=== PATIENT | male | born 1955 | race Caucasian/White ===

== ENCOUNTER → 2016-10-27 | Outpatient (REF) | payer BC | LOC: M LAB REF 14:51 | PROVIDERS: ATTEND Physician Assistant Medical | DX: R50.9 Fever, unspecified (principal) ==

== ENCOUNTER → 2019-09-18 | Outpatient (CLI) | payer MEDICARE ==
--- NOTE | 2019-09-18 15:04 | REP ---
Renal ultrasound: Clinical history states chronic renal disease stage III. Right kidney measures 10.5 x 6.3 x 5.6 cm. Left kidney measures 10.2 x 5.2 x 5.1 cm. The kidneys are normal size. Renal cortical echogenicity is normal bilaterally. There are no renal calculi. There is no hydronephrosis. There are no solid renal masses. There is a right renal 5.8 cm lower pole cyst. This appears to be a Bosniak type 1 cyst. There is a left renal 4.4 centimeter lower pole cyst. This appears to be a Bosniak type 1 cyst. There is a left renal upper pole 0.9 cm Bosniak type 1 cyst. There is a left renal upper pole 0.8 cm Bosniak type 1 cyst. With color Doppler ultrasound there are bilateral ureteral jets into the bladder. The bladder is nondistended and cannot be further evaluated. Impression: Bilateral renal cortical cysts. Otherwise, negative bilateral renal ultrasound. Renal Vascular Doppler Ultrasound: Right Kidney: Renal length 10.5 cm. Extraparenchymal renal artery. Peak renal artery flow velocity the 192.3 cm/ sec Peak aortic velocity: 57.1 cm/sec Renal/aortic ratio: 3.4 Intraparenchymal renal arteries. Resistive index: upper pole 0.6 a mid pole 0.69 lower pole 0.80 Acceleration time: upper pole 0.046 mid pole 0.042 lower pole 0.050 Left kidney: Renal length 10.2 cm. Extraparenchymal renal artery: Peak renal artery flow velocity: 130 cm/sec. Peak aortic velocity: 57.1 cm/sec Renal/aortic ratio: 2.3 Intraparenchymal renal arteries: Resistive index: Upper pole 0.5 mid pole 0.62 lower pole 0.55 Acceleration time: Upper pole 0.03 mid pole 0.054 lower pole 0.025 Impression: The extrarenal renal artery flow velocities are moderately elevated bilaterally resulting in elevated renal - aortic ratios. However, the no definite stenoses are identified on 2D or color Doppler imaging. Electronically Signed by Donovan Cabrera MD 09/18/2019 02:56 P
== END ==
LOC: M RAD 07:39
PROVIDERS: ATTEND Internal Medicine Nephrology
DX: N18.3 Chronic kidney disease, stage 3 (moderate) (principal); I12.9 Hypertensive chronic kidney disease with stage 1 through stage 4 chronic kidney disease, or unspecified chronic kidney disease; I25.10 Atherosclerotic heart disease of native coronary artery without angina pectoris

== ENCOUNTER → 2022-08-05 | Outpatient (CLI) | payer MEDICARE | LOC: M RAD 09:22 | PROVIDERS: ATTEND Internal Medicine | DX: Z12.2 Encounter for screening for malignant neoplasm of respiratory organs (principal); F17.210 Nicotine dependence, cigarettes, uncomplicated ==

== ENCOUNTER → 2022-09-08 | Outpatient (CLI) | payer MEDICARE | LOC: M RAD 08:55 | PROVIDERS: ATTEND Internal Medicine | DX: I10 Essential (primary) hypertension (principal) ==

== ENCOUNTER → 2023-04-06 | Outpatient (CLI) | payer MEDICARE | LOC: M WHC 08:06 | PROVIDERS: ATTEND Nurse Practitioner Family | DX: N18.32 Chronic kidney disease, stage 3b (principal); I12.9 Hypertensive chronic kidney disease with stage 1 through stage 4 chronic kidney disease, or unspecified chronic kidney disease; N28.1 Cyst of kidney, acquired ==

== ENCOUNTER → 2023-05-12 | Outpatient (REF) | payer MEDICARE | LOC: M LAB REF 09:52 | PROVIDERS: ATTEND Nurse Practitioner Family | DX: I12.9 Hypertensive chronic kidney disease with stage 1 through stage 4 chronic kidney disease, or unspecified chronic kidney disease (principal); E87.6 Hypokalemia ==

== ENCOUNTER → 2023-08-29 | Outpatient (REF) | payer MEDICARE | LOC: M LAB REF 10:48 | PROVIDERS: ATTEND Nurse Practitioner Family | DX: E27.8 Other specified disorders of adrenal gland (principal) ==

== ENCOUNTER → 2023-10-05 | Outpatient (CLI) | payer MEDICARE | LOC: M WUC 08:31 | PROVIDERS: ATTEND Nurse Practitioner Family | DX: R06.00 Dyspnea, unspecified (principal) ==

== ENCOUNTER → 2024-05-28 | Outpatient (CLI) | payer MEDICARE | LOC: M RAD 08:48 | PROVIDERS: ATTEND Internal Medicine | DX: Z12.2 Encounter for screening for malignant neoplasm of respiratory organs (principal); F17.210 Nicotine dependence, cigarettes, uncomplicated ==

== ENCOUNTER → 2024-10-15 | Outpatient (REF) | payer MEDICARE | LOC: M LAB REF 08:42 | PROVIDERS: ATTEND Surgery | DX: L72.0 Epidermal cyst (principal) ==